=== PATIENT | female | born 1980 | race Hispanic/Latino ===

== ENCOUNTER 2021-05-18 00:44 | Emergency (ER) | payer BC ==
[~2021-05-18] VITALS: Ht 152.4 cm; Wt 71.7 kg
[2021-05-18] MEDS ORDERED: FAMOTIDINE 20MG VIAL IV ONE (01:30)
[2021-05-18 01:42] LABS: BASOPHILS % (AUTO) 0.2 % (0.0-5.0); EOSINOPHILS % (AUTO) 0.3 % (0.0-8.0); HEMATOCRIT 40.7 % (36-48); LYMPHOCYTES % (AUTO) 12.5 % (21.0-51.0); MEAN CORPUSCULAR HEMOGLOBIN 30.4 pg (27.0-33.0); MEAN CORPUSCULAR HGB CONC 33.4 g/dL (32.0-36.0); MEAN CORPUSCULAR VOLUME 91.1 fL (79-99); MONOCYTES % (AUTO) 3.1 % (3.0-13.0); NEUTROPHILS % (AUTO) 83.5 % (40.0-77.0); PLATELET COUNT (AUTO) 346 K/uL (130-400); RED BLOOD CELL COUNT(AUTO) 4.47 MIL/uL (4.00-5.50); RED CELL DISTRIBUTION WIDTH 12.3 % (11.0-15.5); WHITE BLOOD COUNT (AUTO) 16.8 K/uL (4.8-10.8)
[2021-05-18 01:49] LABS: CREATININE 0.9 mg/dL (0.5-1.5); POTASSIUM 3.3 mmol/L (3.5-5.1)
[2021-05-18 01:54] LABS: ALBUMIN 3.3 g/dL (3.5-5.0); BILIRUBIN,TOTAL 0.3 mg/dL (0.2-1.0); TOTAL PROTEIN, SERUM 7.2 g/dL (6.0-8.3)
[2021-05-18] MEDS ORDERED: HYD25 PO (02:52)
[2021-05-18] MEDS ORDERED: FAMO40TA7 PO (03:03)
[2021-05-18 03:07] VITALS: BP 125/73
== END 2021-05-18 03:16 | disposition home or self-care (01) ==
LOC: EDH 00:44
DX: L51.9 Erythema multiforme, unspecified (principal)
CPT/HCPCS: 36415; 80053; 85025; 96372; 99284; J3490